=== PATIENT | male | born 1980 | race Caucasian/White ===

== ENCOUNTER 2018-04-17 17:51 | Inpatient (IN) | END 2018-04-21 14:05 | disposition home or self-care (01) | DRG 637 ==

== ENCOUNTER 2018-08-24 13:54 | Inpatient (IN) | payer MEDICARE, OTHER ==
[~2018-08-24] VITALS: Ht 167.6 cm; Wt 77.3 kg
[~2018-08-24 13:54] MED LIST: INSU100I33 SC; NOVO3I SC
[2018-08-24 14:20] VITALS: Ht 167.6 cm; Wt 77.3 kg
--- NOTE | 2018-08-24 15:03 | ERD ---
ER Documentation Chief Complaint Chief Complaint Vomiting since AM dark color emesis, blood glucose "HI" HPI 37-year-old man brought in by EMS for vomiting, weakness, dehydration, elevated blood sugar. Patient does have a history of diabetes mellitus with prior diabetic ketoacidosis. He states he has not used his insulin and diabetic therapy for over 1 day because his father was hospitalized recently and he was staying with him in the hospital I could not access his medication. Patient admits vomiting, generalized weakness began about half a day ago. He denies fevers or chills, no chest pain or shortness of breath, no loss of consciousness. Patient transported here by EMS without further complications ROS All systems reviewed and are negative except as per history of present illness. Medications Home Meds Reported Medications Aspirin* (Aspirin* EC) 81 Mg Tablet.dr, 81 MG PO DAILY, TAB 08/24/18 Atorvastatin Calcium* (Atorvastatin Calcium*) 20 Mg Tablet, 20 MG PO QHS, #30 TAB 08/24/18 Cholecalciferol (Vitamin D3) (Vitamin D-3) 2,000 Unit Tablet, 2000 UNIT PO DAILY 08/24/18 Insulin Detemir (Levemir) 100 Unit/1 Ml Vial, 23 UNITS SUBCUTANE* QHS 08/24/18 Insulin Aspart* (Novolog Insulin Pen*) 100 Unit/Ml Soln, 10-15 UNIT SC .SLIDING SCALE AC, EA 08/24/18 Discontinued Reported Medications Insulin Aspart* (Novolog Insulin Pen*) 100 Unit/Ml Soln, 0 SC .SLIDING SCALE AC, EA 04/17/18 Discontinued Scripts Insulin Glargine,Hum.rec.anlog (Basaglar Kwikpen U-100) 100 Unit/1 Ml Insuln.pen, 23 UNIT SC QHS for 30 Days, #1 EA Prov:DB LANDON MD 04/21/18 Allergies Allergies: Coded Allergies: No Known Drug Allergies (Verified Allergy, Unknown, 08/24/18) PMhx/Soc Diabetes mellitus History of Surgery: Yes (EYE SURGERY) Anesthesia Reaction: No Hx Neurological Disorder: No Hx Respiratory Disorders: No Hx Cardiac Disorders: No Hx Psychiatric Problems: No Hx Miscellaneous Medical Probl: Yes (DM, LEGALLY BLIND) Hx Alcohol Use: No Hx Substance Use: No Hx Tobacco Use: No Smoking Status: Never smoker FmHx Family History: No diabetes Physical Exam Vitals Vital Signs Date Temp Pulse Resp B/P (MAP) Pulse Ox O2 O2 Flow FiO2 Time Delivery Rate 08/24/18 97.5 124 26 118/49 100 14:20 (72) Physical Exam GENERAL: Well-developed, nauseous, afebrile HEENT: Dry mucous membranes, pink conjunctiva, no cervical spine tenderness or step-off deformities NEURO: Alert and oriented 3, cranial nerves II through XII intact bilaterally, pupils equal round reactive to light, no focal deficits or facial asymmetry, sensation intact distally Strength 5/5 in upper and lower extremities bilaterally CARDIAC: Tachycardic and regular, no murmurs rubs or gallops LUNGS: Clear bilaterally no wheezing crackles or stridor ABDOMEN: Soft nontender, no guarding, no rigidity, no rebound, no psoas sign no obturator sign. SKIN: Warm and dry to touch, no abrasions, contusions, or hematomas, no lacerations, no ecchymosis, no target lesions, and without ulcers EXTREMITIES: No clubbing cyanosis or edema, calves are bilaterally symmetrical, no Homans sign, no popliteal cord sign. Distal pulses equal and bilateral PSYCH: Normal affect without agitation or irritability Result Diagram: 08/24/18 1403 08/25/18 0851 Results 24 hrs Laboratory Tests Test 08/24/18 14:00 08/24/18 14:03 08/24/18 14:12 08/24/18 14:18 Bedside Glucose > 595 mg/dL White Blood 17.9 10^3/ul Count Red Blood Count 4.22 10^6/ul Hemoglobin 12.2 g/dl Hematocrit 38.6 % Mean 91.5 fl Corpuscular Volume Mean 28.9 pg Corpuscular Hemoglobin Mean 31.6 g/dl Corpuscular Hemoglobin Conc ent Red Cell 12.5 % Distribution Width Platelet Count 389 10^3/UL Mean Platelet 12.0 fl Volume Immature 0.800 % Granulocytes % Neutrophils % 88.4 % Lymphocytes % 4.2 % Monocytes % 6.3 % Eosinophils % 0.0 % Basophils % 0.3 % Nucleated Red 0.0 /100WBC Blood Cells % Immature 0.140 10^3/ul Granulocytes # Neutrophils # 15.8 10^3/ul Lymphocytes # 0.8 10^3/ul Monocytes # 1.1 10^3/ul Eosinophils # 0.0 10^3/ul Basophils # 0.1 10^3/ul Nucleated Red 0.0 10^3/ul Blood Cells # Sodium Level 131 mmol/L Potassium Level 7.5 mmol/L Chloride Level 87 mmol/L Carbon Dioxide 6 mmol/L Level Anion Gap 38 Blood Urea 33 mg/dl Nitrogen Creatinine 1.86 mg/dl Est Glomerular 41 mL/min Filtrat Rate mL/min Glucose Level 985 mg/dl Hemoglobin A1c 9.6 % Calcium Level 9.1 mg/dl Phosphorus 12.6 mg/dl Level Magnesium Level 2.5 mg/dl Total Bilirubin 0.1 mg/dl Direct 0.00 mg/dl Bilirubin Indirect 0.1 mg/dl Bilirubin Aspartate Amino 26 IU/L Transf (AST/SGO T) Alanine 16 IU/L Aminotransferas e (ALT/SGPT) Alkaline 149 IU/L Phosphatase Total Protein 7.5 g/dl Albumin 4.6 g/dl Lipase 269 U/L POC Venous 5.4 mmol/L Lactate Urine Color STRAW Urine Clarity CLEAR Urine pH 5.0 Urine Specific 1.016 [place] Urine Ketones 2+ mg/dL Urine Nitrite NEGATIVE mg/dL Urine Bilirubin NEGATIVE mg/dL Urine NEGATIVE mg/dL Urobilinogen Urine Leukocyte NEGATIVE Stefani/ul Esterase Urine 0 /HPF Microscopic RBC Urine 2 /HPF Microscopic WBC Urine Mucus FEW /HPF Urine 1+ mg/dL Hemoglobin Urine Glucose 3+ mg/dL Urine Total NEGATIVE mg/dl Protein Test 08/24/18 15:08 Blood Gas Blood venous Specimen Source Arterial Blood 08/24/2018 3:27: Date Drawn 25 PM Arterial Blood OTHER Gas Puncture Site Sony Test N/A Venous Blood pH 6.994 Venous Blood 25.0 mmHG pCO2 (Temp Corrected ) Venous Blood 76.2 mmHG pO2 (Temp Corrected ) Venous Blood 5.9 mmol/L HCO3 Venous Blood 89.0 mmHG Oxygen Saturation Venous Blood -24.1 mmol/L Base Excess Venous Blood 12.8 g/dl Total Hemoglobin Venous Blood 88.2 % Oxyhemoglobin Venous Blood 0.6 % Methemoglobin Blood Gas A-a 43.6 mmHg O2 Differential Carboxyhemoglob 0.3 % in Blood Gas 37.0 C Temperature Blood Gas ROOM AIR Modality FiO2 21.0 % Blood Gas Gia izaguirre Critical Value Read Back Blood Gas ab Notified Whom Blood Gas 08/24/2018 3:33: Notified Time 15 PM Current Medications Medications Dose Sig/Jeovanny Start Time Status Last (Trade) Ordered Route PRN Stop Time Admin Dose Reason Admin Sodium 770 ml @ ONCE ONCE 08/24/18 DC 08/24/18 Chloride 770 mls/hr IV 15:30 15:35 08/24/18 16:29 Ondansetron 4 mg ONCE STAT 08/24/18 DC 08/24/18 HCl (Zofran IV 15:28 15:35 Inj) 08/24/18 15:31 Ceftriaxone 50 ml @ ONCE ONCE 08/24/18 DC 08/24/18 Sodium 100 mls/hr IVPB 15:30 15:35 08/24/18 15:59 Sodium 1,000 ml @ Q1H ONCE 08/24/18 DC 08/24/18 Chloride 1,000 mls/hr IV 15:30 15:35 08/24/18 16:29 Insulin 10 unit ONCE ONCE 08/24/18 DC 08/24/18 Human SC 15:30 15:39 Lispro 08/24/18 15:31 (Humalog) Procedures/MDM IV line was established patient was placed on quality assurance monitor chassis rhythm strip revealed a sinus tachycardia at 140 bpm with upright P and T waves. Patient was afebrile I administered 3 L normal saline IV for dehydration and fluid resuscitation. I administered low-dose lispro insulin subcutaneous injection and began the patient on insulin drip. EKG performed, read by me revealed a sinus tachycardia at 126 bpm, normal axis, narrow QRS complex, no concerning ST elevations or depressions noted. CBC reveals a leukocytosis at 18, electrolytes were abnormal with hyponatremia and hyperkalemia 7.5, creatinine elevated, liver function tests unremarkable, ABG revealed a pH of 6.99 One AP view of the chest performed, read by me reveals no acute infiltrates, normal mediastinum, sharp costophrenic and cardiac borders, no air under the diaphragm. Otherwise unremarkable chest x-ray. Critical Care: Time: 52 minutes, this was time separate from other billable procedures. Treatments/Evaluations: Close monitoring and treatment of unstable vital signs, cardiorespiratory, and neurologic status, while maintaining tight balance of fluid, respiratory, and cardiac interventions. I administered calcium 2 g IV for hyperkalemia, I also administered sodium bicarbonate 50 mEq IV, patient also received Zofran 4 mg IV for nausea and vomiting. Also administered an initial empiric dose of ceftriaxone 1 g IV although continued antibiotics may not be needed and will be deferred to admitting team. Patient admitted to the ICU Departure Diagnosis: Primary Impression: DKA (diabetic ketoacidoses) Diabetes mellitus type: type 2 Diabetes mellitus complication detail: with coma Qualified Codes: E11.11 - Type 2 diabetes mellitus with ketoacidosis with coma Additional Impressions: Hyperglycemia Acute hyperkalemia Vomiting Vomiting type: unspecified Vomiting Intractability: intractable Nausea presence: with nausea Qualified Codes: R11.2 - Nausea with vomiting, unspecified Dehydration Acute kidney injury Condition: Serious DOMINGUEZ NAPOLES MD Aug 24, 2018 15:03
[2018-08-24] MEDS ORDERED: ONDANSETRON 4 MG INJ IV STA (15:28)
[2018-08-24] MEDS ORDERED: SOD CHLORIDE 0.9% 770 ML IV ONE (15:30)
[2018-08-24] MEDS ORDERED: SOD CHLORIDE 0.9% 1,000 ML IV ONE (15:30)
[2018-08-24] MEDS ORDERED: CEFTRIAXONE 1 GM/50 ML (PMX) 50 ML IVPB ONE (15:30)
[2018-08-24] MEDS ORDERED: INSULIN LISPRO 100 UNIT/ML VIAL SC ONE (15:30)
[2018-08-24] MEDS ORDERED: CA CHLORIDE 10% 10 ML SYRINGE ONE (15:52)
[2018-08-24] MEDS ORDERED: CA CHLORIDE 10% 10 ML SYRINGE IV ONE (16:00)
[2018-08-24] MEDS ORDERED: NA BICARBONATE 8.4% 50 ML SYG IV ONE ×2 (16:00→17:00)
[2018-08-24] MEDS ORDERED: CALCIUM GLUCONATE 10% 2 GM in DEXTROSE 5% 100 ML IVPB ONE (16:00)
[2018-08-24] MEDS ORDERED: SOD CHLORIDE 0.9% 1,000 ML IV SCH (16:13)
[2018-08-24] MEDS ORDERED: DEXTROSE 10 %/0.45 % NACL 1,000 ML IV SCH (16:13)
--- NOTE | 2018-08-24 16:17 | HP ---
Date/Time of Note Date/Time of Note DATE: 08/24/18 TIME: 16:17 Assessment/Plan VTE Prophylaxis SCD applied (from Nsg): Yes Pharmacological prophylaxis: LMWH Lines/Catheters IV Catheter Type (from Nrsg): Saline Lock Assessment/Plan Assessment/Plan 1. Diabetic ketoacidosis - DKA protocol started and will be admitted to ICU - Will monitor for closure of gap and transition to SC - due to medication noncompliance 2. Severe anion gap metabolic acidosis - given bicarb in ED and another amp given - no acute respiratory distress appreciated - monitor for improvement - secondary to #1 3. Diabetes Mellitus - A1c ordered - when DKA resolves will transition to PO diet and SC insulin 4. JERONIMO - most likely prerenal as patient appears very dehydrated 5. Hypercalcemia - most likely due to dehydration 6. Diet - NPO 7. DVT ppx - SCD - LMWH 8. GI ppx - PPI 9. Disposition - Admit to ICU for treatment of DKA Result Diagram: 08/24/18 1403 08/24/18 1403 Results 24hrs Laboratory Tests Test 08/24/18 14:00 08/24/18 14:03 08/24/18 14:12 08/24/18 14:18 Bedside Glucose > 595 *H White Blood Count 17.9 #H Red Blood Count 4.22 L Hemoglobin 12.2 L Hematocrit 38.6 #L Mean Corpuscular 91.5 Volume Mean Corpuscular 28.9 L Hemoglobin Mean Corpuscular 31.6 L Hemoglobin Concen t Red Cell 12.5 Distribution Width Platelet Count 389 # Mean Platelet 12.0 #H Volume Immature 0.800 H Granulocytes % Neutrophils % 88.4 H Lymphocytes % 4.2 L Monocytes % 6.3 Eosinophils % 0.0 Basophils % 0.3 Nucleated Red 0.0 Blood Cells % Immature 0.140 H Granulocytes # Neutrophils # 15.8 H Lymphocytes # 0.8 Monocytes # 1.1 H Eosinophils # 0.0 Basophils # 0.1 Nucleated Red 0.0 Blood Cells # Sodium Level 131 L Potassium Level 7.5 *H Chloride Level 87 L Carbon Dioxide 6 *L Level Anion Gap 38 H Blood Urea 33 H Nitrogen Creatinine 1.86 H Est Glomerular 41 L Filtrat Rate mL/min Glucose Level 985 *H Calcium Level 9.1 Phosphorus Level 12.6 H Magnesium Level 2.5 Total Bilirubin 0.1 L Direct Bilirubin 0.00 Indirect 0.1 Bilirubin Aspartate Amino 26 Transf (AST/SGOT) Alanine 16 Aminotransferase (ALT/SGPT) Alkaline 149 H Phosphatase Total Protein 7.5 Albumin 4.6 Lipase 269 POC Venous 5.4 *H Lactate Urine Color STRAW Urine Clarity CLEAR Urine pH 5.0 Urine Specific 1.016 [place] Urine Ketones 2+ H Urine Nitrite NEGATIVE Urine Bilirubin NEGATIVE Urine NEGATIVE Urobilinogen Urine Leukocyte NEGATIVE Esterase Urine Microscopic 0 RBC Urine Microscopic 2 WBC Urine Mucus FEW A Urine Hemoglobin 1+ H Urine Glucose 3+ H Urine Total NEGATIVE Protein Test 08/24/18 15:08 Blood Gas Blood venous Specimen Source Arterial Blood 08/24/2018 3:27:2 Date Drawn 5 PM Arterial Blood OTHER Gas Puncture Site Sony Test N/A Venous Blood pH 6.994 *L Venous Blood pCO2 25.0 L (Temp Corrected) Venous Blood pO2 76.2 H (Temp Corrected) Venous Blood HCO3 5.9 L Venous Blood 89.0 H Oxygen Saturation Venous Blood Base -24.1 L Excess Venous Blood 12.8 Total Hemoglobin Venous Blood 88.2 Oxyhemoglobin Venous Blood 0.6 Methemoglobin Blood Gas A-a O2 43.6 Differential Carboxyhemoglobin 0.3 Blood Gas 37.0 Temperature Blood Gas ROOM AIR Modality FiO2 21.0 Blood Gas Gia izaguirre Critical Value Read Back Blood Gas ab Notified Whom Blood Gas 08/24/2018 3:33:1 Notified Time 5 PM HPI/ROS Admit Date/Time Admit Date/Time 08/24/18 1600 Hx of Present Illness 37 yo M with PMH of blindness and diabetes mellitus presented to the ED with nausea and vomiting. Patient was not the most forthcoming with information and history was obtained from the ED physician. Per ED MD, patient admits to taking his father to the hospital yesterday. He still ate his meals but did not take any insulin since forgot his medications. He was without medications the entire day. He admits to nausea with vomiting of dark colored emesis since this am. Patient only mumbling to questions but appears in no acute distress. ROS All 12 systems reviewed and pertinent positives as per HPI. All others negative. ROS limited given patient lethargic. Constitutional: nausea Eyes: No discharge ENT: No congestion Respiratory: No shortness of breath Cardiovascular: No chest pain Gastrointestinal: nausea, vomiting Genitourinary: no complaints Skin: No rash PMH/Family/Social Past Medical History Medical History: diabetes Medications Current Medications Sodium Chloride 770 ml @ 770 mls/hr ONCE ONCE IV Last administered on 08/24/18at 15:35; Admin Dose 770 MLS/HR; Start 08/24/18 at 15:30; Stop 08/24/18 at 16:29 Sodium Chloride 1,000 ml @ 1,000 mls/hr Q1H ONCE IV Last administered on 08/24/18at 15:35; Admin Dose 1,000 MLS/HR; Start 08/24/18 at 15:30; Stop 08/24/18 at 16:29 Insulin Human Regular 100 unit/ Sodium Chloride 101 ml @ 7.8 mls/hr ER DKA PROTOCOL IV ; Start 08/24/18 at 16:30 Sodium Chloride 1,000 ml @ 0 mls/hr Q0M IV ; Start 08/24/18 at 16:13 Dextrose/Sodium Chloride 1,000 ml @ 0 mls/hr Q0M IV ; Start 08/24/18 at 16:13 Coded Allergies: No Known Drug Allergies (Verified Allergy, Unknown, 08/24/18) Past Surgical History Past Surgical Hx: other (unable to obtain) Family History Significant Family History: other (unable to obtain) Social History Alcohol Use: none Smoking Status: Never smoker Drug Use: none Exam/Review of Systems Vital Signs Vitals Vital Signs Date Temp Pulse Resp B/P (MAP) Pulse Ox O2 O2 Flow FiO2 Time Delivery Rate 08/24/18 97.5 124 26 118/49 100 14:20 (72) Exam Exam General: Patient is a pleasant male, fatigued, mild distress, dry mucous membranes HEENT: Atraumatic, normocephalic Neck: Supple with full range of motion. No rigidity or meningismus Chest: Nontender Lungs: Clear to auscultation bilaterally no crackles rales or wheezing Heart: Normal S1-S2, Regular rhythm, tachycardia no murmurs Abdomen: Soft , tender epigastric area, nondistended , bowel sounds are present. No guarding no rebound tenderness , No masses or organomegaly. No costovertebral temporal angle mass Extremities: Normal to inspection, no edema no cyanosis Additional Comments Home medications reviewed PROCEDURE: XR Chest. CLINICAL INDICATION: Diabetic ketoacidosis. TECHNIQUE: Chest, 1 view. COMPARISON: 09/08/2017. FINDINGS: The cardiomediastinal silhouette is normal in size. No focal consolidation is seen. No pleural effusion is seen. No definite pneumothorax is seen. No acute osseous abnormality. IMPRESSION: No radiographic evidence of an acute cardiopulmonary process. RPTAT: AAEE Alejandra Ramirez Physician Date Time Electronically viewed and signed by Alejadnra Ramirez, Physician on 08/24/2018 16:13 DB LANDON MD Aug 24, 2018 16:17
[2018-08-24] MEDS ORDERED: NOVO3I SC (16:26)
[2018-08-24] MEDS ORDERED: CHOL200056 PO (16:28)
[2018-08-24] MEDS ORDERED: LEVEM SUBCUTANE* (16:28)
[2018-08-24] MEDS ORDERED: ASPI-817 PO (16:29)
[2018-08-24] MEDS ORDERED: ATOR20TA38 PO (16:29)
[2018-08-24] MEDS ORDERED: METOCLOPRAMIDE 10 MG INJ IV PRN (16:30)
[2018-08-24] MEDS ORDERED: ONDANSETRON 4 MG INJ IV PRN (16:30)
[2018-08-24] MEDS ORDERED: ACETAMINOPHEN 650MG/20.3ML CUP PO PRN (16:30)
[2018-08-24] MEDS: INSULIN REGULAR, HUMAN 100 UNIT in SOD CHLORIDE 0.9% 100 ML IV SCH ×2 (16:59)
[2018-08-24] MEDS ORDERED: POTASSIUM CHLORIDE 30 MEQ in SOD CHLORIDE 0.9% 1,000 ML IV SCH (20:30)
[2018-08-24 23:15] VITALS: BP 116/66; PULSE 117; RESP 19
[2018-08-24] MEDS: D10/0.45% NACL + KCL 30 MEQ 1,000 ML IV SCH (23:18)
[2018-08-25] VITALS (22 sets, daily range): BP systolic 106–129; BP diastolic 53–79; PULSE 94–107; RESP 12–23
[2018-08-25] MEDS: INSULIN REGULAR, HUMAN 100 UNIT in SOD CHLORIDE 0.9% 100 ML IV SCH ×2 (03:58)
[2018-08-25] MEDS: D10/0.45% NACL + KCL 30 MEQ 1,000 ML IV SCH (05:00)
[2018-08-25] MEDS: PANTOPRAZOLE 40 MG INJ IV SCH ×2 (05:00→06:26)
[2018-08-25] MEDS: ENOXAPARIN 40 MG/0.4 ML SYG SC SCH (09:03)
[2018-08-25] MEDS ORDERED: D10/0.45% NACL + KCL 30 MEQ 1,000 ML IV ONE (09:16)
[2018-08-25] MEDS ORDERED: GLUCAGON 1 MG INJ IM PRN (10:00)
[2018-08-25] MEDS ORDERED: GLUCOSE GEL 15 GRAM TUBE PO PRN ×2 (10:00)
[2018-08-25] MEDS ORDERED: DEXTROSE 50% 50 ML SYRINGE IV PRN ×2 (10:00)
[2018-08-25] MEDS ORDERED: GLUCOSE GEL 15 GRAM TUBE BUCCAL PRN (10:00)
[2018-08-25] MEDS: INSULIN DETEMIR [LEVEMIR] (100 UNITS/ML) SYG SC SCH ×2 (11:28→21:06)
[2018-08-25] MEDS: INSULIN ASPART [NOVOLOG] 3 ML PEN SC SCH ×3 (11:30→20:36)
[2018-08-25] MEDS ORDERED: D10/0.45% NACL + KCL 30 MEQ 1,000 ML IV SCH (12:19)
[2018-08-25] MEDS ORDERED: SENNA/DOCUSATE NA (8.6MG/50MG) TAB PO PRN (13:30)
[2018-08-25] MEDS: POLYETHYLENE GLYCOL 17 GM PACKET PO SCH (13:30)
--- NOTE | 2018-08-25 14:33 | PN ---
Date/Time of Note Date/Time of Note DATE: 08/25/18 TIME: 14:29 Assessment/Plan VTE Prophylaxis Risk score (from Nsg)>0 risk: 3 SCD applied (from Nsg): Yes Pharmacological prophylaxis: LMWH Lines/Catheters IV Catheter Type (from Nrsg): Peripheral IV Urinary Cath still in place: No Assessment/Plan Assessment/Plan 1. Diabetic ketoacidosis- resolved - AG closed and transitioned to SC Lantus - due to medication noncompliance 2. Severe anion gap metabolic acidosis- resolved - no acute respiratory distress appreciated - secondary to #1 3. Diabetes Mellitus - A1c noted - continue Lantus and ISS with accuchecks 4. JERONIMO- resolved - most likely prerenal 5. Constipation - may be causing N/V 6. Hypercalcemia- resolved 7. Disposition - Once off insulin drip, can downgrade to telemetry >30 minutes of critical care time spent with patient Result Diagram: 08/24/18 1403 08/25/18 0851 Results 24hrs Laboratory Tests Test 08/24/18 15:08 08/24/18 16:26 08/24/18 16:35 08/24/18 16:57 Blood Gas Blood venous Specimen Source Arterial Blood 08/24/2018 3:27: Date Drawn 25 PM Arterial Blood OTHER Gas Puncture Site Sony Test N/A Venous Blood pH 6.994 *L Venous Blood 25.0 L pCO2 (Temp Corrected) Venous Blood pO2 76.2 H (Temp Corrected) Venous Blood 5.9 L HCO3 Venous Blood 89.0 H Oxygen Saturation Venous Blood -24.1 L Base Excess Venous Blood 12.8 Total Hemoglobin Venous Blood 88.2 Oxyhemoglobin Venous Blood 0.6 Methemoglobin Blood Gas A-a O2 43.6 Differential Carboxyhemoglobi 0.3 n Blood Gas 37.0 Temperature Blood Gas ROOM AIR Modality FiO2 21.0 Blood Gas Gia izaguirre Critical Value Read Back Blood Gas ab Notified Whom Blood Gas 08/24/2018 3:33: Notified Time 15 PM Bedside Glucose > 595 *H > 595 *H Sodium Level 132 L Potassium Level 7.2 *H Chloride Level 92 L Carbon Dioxide 7 *L Level Anion Gap 33 H Blood Urea 35 H Nitrogen Creatinine 1.84 H Est Glomerular 41 L Filtrat Rate mL/min Glucose Level 888 *H Calcium Level 11.3 #H Phosphorus Level 11.5 H Magnesium Level 2.5 Test 08/24/18 18:07 08/24/18 18:17 08/24/18 19:00 08/24/18 20:04 Bedside Glucose > 595 *H > 595 *H 476 *H POC Venous 2.5 *H Lactate Sodium Level 140 Potassium Level 4.9 # Chloride Level 99 Carbon Dioxide 11 L Level Anion Gap 30 H Blood Urea 34 H Nitrogen Creatinine 1.66 H Est Glomerular 47 L Filtrat Rate mL/min Glucose Level 564 #*H Calcium Level 10.8 H Phosphorus Level 5.9 #H Magnesium Level 2.7 H Test 08/24/18 20:13 08/24/18 20:58 08/24/18 21:57 08/24/18 23:10 Blood Gas Blood venous Specimen Source Arterial Blood 08/24/2018 7:18: Date Drawn 00 PM Arterial Blood VENOUS LINE Gas Puncture Site Sony Test N/A Venous Blood pH 7.205 L Venous Blood 32.1 L pCO2 (Temp Corrected) Venous Blood pO2 38.7 H (Temp Corrected) Venous Blood 12.4 L HCO3 Venous Blood 68.5 Oxygen Saturation Venous Blood -14.3 L Base Excess Venous Blood 13.1 Total Hemoglobin Venous Blood 68.0 Oxyhemoglobin Venous Blood 0.6 Methemoglobin Carboxyhemoglobi 0.1 n Blood Gas 37.0 Temperature Blood Gas ROOM AIR Modality FiO2 21.0 Blood Gas MG Notified Whom Blood Gas 08/24/2018 7:30: Notified Time 00 PM Bedside Glucose 396 H 379 H 201 Test 08/24/18 23:44 08/25/18 00:02 08/25/18 00:13 08/25/18 00:44 Bedside Glucose 187 252 H Sodium Level 144 Potassium Level 4.5 Chloride Level 108 Carbon Dioxide 20 L Level Anion Gap 16 #H Blood Urea 28 H Nitrogen Creatinine 1.36 H Est Glomerular 59 L Filtrat Rate mL/min Glucose Level 221 #H Calcium Level 10.2 Phosphorus Level 3.0 # Magnesium Level 2.4 Blood Gas Blood venous Specimen Source Arterial Blood 08/25/2018 12:00 Date Drawn :24 AM Arterial Blood VENOUS LINE Gas Puncture Site Sony Test N/A Venous Blood pH 7.310 L Venous Blood 43.3 pCO2 (Temp Corrected) Venous Blood pO2 29.4 (Temp Corrected) Venous Blood 21.3 L HCO3 Venous Blood 55.8 Oxygen Saturation Venous Blood -4.8 Base Excess Venous Blood 12.6 Total Hemoglobin Venous Blood 55.3 Oxyhemoglobin Venous Blood 0.4 Methemoglobin Carboxyhemoglobi 0.5 n Blood Gas 37.0 Temperature Blood Gas ROOM AIR Modality FiO2 21.0 Blood Gas MA Notified Whom Blood Gas 08/25/2018 12:08 Notified Time :04 AM Test 08/25/18 01:42 08/25/18 02:57 08/25/18 03:54 08/25/18 04:52 Bedside Glucose 215 210 188 180 Test 08/25/18 04:58 08/25/18 05:53 08/25/18 06:46 08/25/18 08:02 Sodium Level 145 H Potassium Level 4.6 Chloride Level 112 H Carbon Dioxide 25 Level Anion Gap 8 # Blood Urea 25 H Nitrogen Creatinine 1.08 Est Glomerular > 60 Filtrat Rate mL/min Glucose Level 175 Calcium Level 9.8 Phosphorus Level 2.5 Magnesium Level 2.3 Bedside Glucose 191 159 185 Test 08/25/18 08:06 08/25/18 08:51 08/25/18 08:55 08/25/18 09:58 Blood Gas Blood venous Specimen Source Arterial Blood 08/25/2018 8:55: Date Drawn 00 AM Arterial Blood 6.939 *L pH (Temp corrected) Arterial Blood 81.7 *H pCO2 (Temp correct) Arterial Blood 43.0 *L pO2 (Temp corrected) Arterial Blood 17.1 L HCO3 Arterial Blood -16.1 L Base Excess Arterial Blood 60.0 L Oxygen Saturatio n Sony Test N/A Arterial Blood VENOUS LINE Gas Puncture Site Arterial 0.4 Blood Carboxyhem oglobin Arterial Blood 0.8 Methemoglobin Oxyhemoglobin 59.3 L Percent Blood Gas 37.0 Temperature Blood Gas ROOM AIR Modality FiO2 21.0 Blood Gas LETY RED Critical Value Read Back Blood Gas TM Notified Whom Blood Gas 08/25/2018 9:03: Notified Time 00 AM Sodium Level 142 Potassium Level 4.4 Chloride Level 112 H Carbon Dioxide 25 Level Anion Gap 5 Blood Urea 19 Nitrogen Creatinine 0.95 Est Glomerular > 60 Filtrat Rate mL/min Glucose Level 170 Calcium Level 9.4 Magnesium Level 2.2 Bedside Glucose 165 175 Test 08/25/18 10:34 08/25/18 10:56 08/25/18 11:55 08/25/18 13:02 Blood Gas Blood venous Specimen Source Arterial Blood 08/25/2018 10:56 Date Drawn :53 AM Arterial Blood VENOUS LINE Gas Puncture Site Sony Test N/A Venous Blood pH 7.013 *L Venous Blood 76.7 H pCO2 (Temp Corrected) Venous Blood pO2 58.6 H (Temp Corrected) Venous Blood 19.1 L HCO3 Venous Blood 79.8 H Oxygen Saturation Venous Blood -12.8 L Base Excess Venous Blood 11.9 Total Hemoglobin Venous Blood 79.2 Oxyhemoglobin Venous Blood 0.4 Methemoglobin Carboxyhemoglobi 0.3 n Blood Gas 37.0 Temperature Blood Gas ROOM AIR Modality FiO2 21.0 Blood Gas LETY RED Critical Value Read Back Blood Gas TM Notified Whom Blood Gas 08/25/2018 11:06 Notified Time :46 AM Bedside Glucose 153 169 149 Test 08/25/18 14:03 Bedside Glucose 190 Subjective 24 Hr Interval Summary Free Text/Dictation Patient still with nausea and vomiting. States feels as if his abdominal is full. Has been constipated for about 2 weeks, he admits. Exam/Review of Systems Exam Vitals Vital Signs Date Temp Pulse Resp B/P (MAP) Pulse Ox O2 O2 Flow FiO2 Time Delivery Rate 08/25/18 104 12:00 08/25/18 98.7 20 127/72 99 Room Air 12:00 (90) Intake and Output 08/24/18 08/24/18 08/25/18 1515:00 23:00 07:00 IntakeIntake Total 1820 ml 1804.6 ml OutputOutput Total 550 ml 950 ml BalanceBalance 1270 ml 854.6 ml Exam General: mild distress secondary to nausea Neck: Supple Chest: Nontender Lungs: Clear to auscultation bilaterally no crackles rales or wheezing Heart: Normal S1-S2, Regular rhythm, tachycardia no murmurs Abdomen: Soft , mildly tender, nondistended , bowel sounds are present. No guarding no rebound tenderness Extremities: Normal to inspection, no edema no cyanosis Results Results 24hrs Laboratory Tests Test 08/24/18 15:08 08/24/18 16:26 08/24/18 16:35 08/24/18 16:57 Blood Gas Blood venous Specimen Source Arterial Blood 08/24/2018 3:27: Date Drawn 25 PM Arterial Blood OTHER Gas Puncture Site Sony Test N/A Venous Blood pH 6.994 *L Venous Blood 25.0 L pCO2 (Temp Corrected) Venous Blood pO2 76.2 H (Temp Corrected) Venous Blood 5.9 L HCO3 Venous Blood 89.0 H Oxygen Saturation Venous Blood -24.1 L Base Excess Venous Blood 12.8 Total Hemoglobin Venous Blood 88.2 Oxyhemoglobin Venous Blood 0.6 Methemoglobin Blood Gas A-a O2 43.6 Differential Carboxyhemoglobi 0.3 n Blood Gas 37.0 Temperature Blood Gas ROOM AIR Modality FiO2 21.0 Blood Gas Gia leroyr Critical Value Read Back Blood Gas ab Notified Whom Blood Gas 08/24/2018 3:33: Notified Time 15 PM Bedside Glucose > 595 *H > 595 *H Sodium Level 132 L Potassium Level 7.2 *H Chloride Level 92 L Carbon Dioxide 7 *L Level Anion Gap 33 H Blood Urea 35 H Nitrogen Creatinine 1.84 H Est Glomerular 41 L Filtrat Rate mL/min Glucose Level 888 *H Calcium Level 11.3 #H Phosphorus Level 11.5 H Magnesium Level 2.5 Test 08/24/18 18:07 08/24/18 18:17 08/24/18 19:00 08/24/18 20:04 Bedside Glucose > 595 *H > 595 *H 476 *H POC Venous 2.5 *H Lactate Sodium Level 140 Potassium Level 4.9 # Chloride Level 99 Carbon Dioxide 11 L Level Anion Gap 30 H Blood Urea 34 H Nitrogen Creatinine 1.66 H Est Glomerular 47 L Filtrat Rate mL/min Glucose Level 564 #*H Calcium Level 10.8 H Phosphorus Level 5.9 #H Magnesium Level 2.7 H Test 08/24/18 20:13 08/24/18 20:58 08/24/18 21:57 08/24/18 23:10 Blood Gas Blood venous Specimen Source Arterial Blood 08/24/2018 7:18: Date Drawn 00 PM Arterial Blood VENOUS LINE Gas Puncture Site Sony Test N/A Venous Blood pH 7.205 L Venous Blood 32.1 L pCO2 (Temp Corrected) Venous Blood pO2 38.7 H (Temp Corrected) Venous Blood 12.4 L HCO3 Venous Blood 68.5 Oxygen Saturation Venous Blood -14.3 L Base Excess Venous Blood 13.1 Total Hemoglobin Venous Blood 68.0 Oxyhemoglobin Venous Blood 0.6 Methemoglobin Carboxyhemoglobi 0.1 n Blood Gas 37.0 Temperature Blood Gas ROOM AIR Modality FiO2 21.0 Blood Gas MG Notified Whom Blood Gas 08/24/2018 7:30: Notified Time 00 PM Bedside Glucose 396 H 379 H 201 Test 08/24/18 23:44 08/25/18 00:02 08/25/18 00:13 08/25/18 00:44 Bedside Glucose 187 252 H Sodium Level 144 Potassium Level 4.5 Chloride Level 108 Carbon Dioxide 20 L Level Anion Gap 16 #H Blood Urea 28 H Nitrogen Creatinine 1.36 H Est Glomerular 59 L Filtrat Rate mL/min Glucose Level 221 #H Calcium Level 10.2 Phosphorus Level 3.0 # Magnesium Level 2.4 Blood Gas Blood venous Specimen Source Arterial Blood 08/25/2018 12:00 Date Drawn :24 AM Arterial Blood VENOUS LINE Gas Puncture Site Sony Test N/A Venous Blood pH 7.310 L Venous Blood 43.3 pCO2 (Temp Corrected) Venous Blood pO2 29.4 (Temp Corrected) Venous Blood 21.3 L HCO3 Venous Blood 55.8 Oxygen Saturation Venous Blood -4.8 Base Excess Venous Blood 12.6 Total Hemoglobin Venous Blood 55.3 Oxyhemoglobin Venous Blood 0.4 Methemoglobin Carboxyhemoglobi 0.5 n Blood Gas 37.0 Temperature Blood Gas ROOM AIR Modality FiO2 21.0 Blood Gas MA Notified Whom Blood Gas 08/25/2018 12:08 Notified Time :04 AM Test 08/25/18 01:42 08/25/18 02:57 08/25/18 03:54 08/25/18 04:52 Bedside Glucose 215 210 188 180 Test 08/25/18 04:58 08/25/18 05:53 08/25/18 06:46 08/25/18 08:02 Sodium Level 145 H Potassium Level 4.6 Chloride Level 112 H Carbon Dioxide 25 Level Anion Gap 8 # Blood Urea 25 H Nitrogen Creatinine 1.08 Est Glomerular > 60 Filtrat Rate mL/min Glucose Level 175 Calcium Level 9.8 Phosphorus Level 2.5 Magnesium Level 2.3 Bedside Glucose 191 159 185 Test 08/25/18 08:06 08/25/18 08:51 08/25/18 08:55 08/25/18 09:58 Blood Gas Blood venous Specimen Source Arterial Blood 08/25/2018 8:55: Date Drawn 00 AM Arterial Blood 6.939 *L pH (Temp corrected) Arterial Blood 81.7 *H pCO2 (Temp correct) Arterial Blood 43.0 *L pO2 (Temp corrected) Arterial Blood 17.1 L HCO3 Arterial Blood -16.1 L Base Excess Arterial Blood 60.0 L Oxygen Saturatio n Sony Test N/A Arterial Blood VENOUS LINE Gas Puncture Site Arterial 0.4 Blood Carboxyhem oglobin Arterial Blood 0.8 Methemoglobin Oxyhemoglobin 59.3 L Percent Blood Gas 37.0 Temperature Blood Gas ROOM AIR Modality FiO2 21.0 Blood Gas LETY RED Critical Value Read Back Blood Gas TM Notified Whom Blood Gas 08/25/2018 9:03: Notified Time 00 AM Sodium Level 142 Potassium Level 4.4 Chloride Level 112 H Carbon Dioxide 25 Level Anion Gap 5 Blood Urea 19 Nitrogen Creatinine 0.95 Est Glomerular > 60 Filtrat Rate mL/min Glucose Level 170 Calcium Level 9.4 Magnesium Level 2.2 Bedside Glucose 165 175 Test 08/25/18 10:34 08/25/18 10:56 08/25/18 11:55 08/25/18 13:02 Blood Gas Blood venous Specimen Source Arterial Blood 08/25/2018 10:56 Date Drawn :53 AM Arterial Blood VENOUS LINE Gas Puncture Site Sony Test N/A Venous Blood pH 7.013 *L Venous Blood 76.7 H pCO2 (Temp Corrected) Venous Blood pO2 58.6 H (Temp Corrected) Venous Blood 19.1 L HCO3 Venous Blood 79.8 H Oxygen Saturation Venous Blood -12.8 L Base Excess Venous Blood 11.9 Total Hemoglobin Venous Blood 79.2 Oxyhemoglobin Venous Blood 0.4 Methemoglobin Carboxyhemoglobi 0.3 n Blood Gas 37.0 Temperature Blood Gas ROOM AIR Modality FiO2 21.0 Blood Gas LETY RED Critical Value Read Back Blood Gas TM Notified Whom Blood Gas 08/25/2018 11:06 Notified Time :46 AM Bedside Glucose 153 169 149 Test 08/25/18 14:03 Bedside Glucose 190 Medications Medication Current Medications Ondansetron HCl (Zofran Inj) 4 mg Q6H PRN IV NAUSEA AND/OR VOMITING; Start 08/24/18 at 16:30 Metoclopramide HCl (Reglan) 10 mg Q6H PRN IV NAUSEA AND/OR VOMITING Last administered on 08/25/18at 13:45; Admin Dose 10 MG; Start 08/24/18 at 16:30 Acetaminophen (Tylenol Liquid) 650 mg Q6H PRN PO PAIN LEVEL 1-3 OR FEVER Last administered on 08/25/18at 11:35; Admin Dose 650 MG; Start 08/24/18 at 16:30 Pantoprazole (Protonix Iv) 40 mg DAILY@06 IV Last administered on 08/25/18at 06:26; Admin Dose 40 MG; Start 08/25/18 at 06:00 Enoxaparin Sodium (Lovenox) 40 mg DAILY SC Last administered on 08/25/18at 09:03; Admin Dose 40 MG; Start 08/25/18 at 09:00 Insulin Detemir (Levemir) 23 units QHS SC Last administered on 08/25/18at 11:28; Admin Dose 23 UNITS; Start 08/25/18 at 10:30 Insulin Aspart (Novolog Insulin Pen) NOVOLOG *MILD* ALGORITHM WITH MEALS BEDTIME SC ; Start 08/25/18 at 11:30 Miscellaneous Information 1 ea NOTE XX ; Start 08/25/18 at 10:00 Glucose (Glutose) 15 gm Q15M PRN PO DECREASED GLUCOSE; Start 08/25/18 at 10:00 Glucose (Glutose) 22.5 gm Q15M PRN PO DECREASED GLUCOSE; Start 08/25/18 at 10:00 Dextrose (D50w Syringe) 25 ml Q15M PRN IV DECREASED GLUCOSE; Start 08/25/18 at 10:00 Dextrose (D50w Syringe) 50 ml Q15M PRN IV DECREASED GLUCOSE; Start 08/25/18 at 10:00 Glucagon (Glucagen) 1 mg Q15M PRN IM DECREASED GLUCOSE; Start 08/25/18 at 10:00 Glucose (Glutose) 15 gm Q15M PRN BUCCAL DECREASED GLUCOSE; Start 08/25/18 at 10:00 Diagnostic Test (Pha) (Accu-Chek) 1 ea 02 XX ; Start 08/26/18 at 02:00 Potassium Chloride/Dextrose/ Sod Cl 1,000 ml @ 0 mls/hr Q0M IV Last administered on 08/25/18at 14:04; Admin Dose 250 MLS/HR; Start 08/25/18 at 12:19 Polyethylene Glycol (Miralax) 17 gm DAILY PO ; Start 08/25/18 at 13:30 Senna/Docusate Sodium (Senokot-S) 1 tab BID PRN PO constipation; Start 08/25/18 at 13:30 DB LANDON MD Aug 25, 2018 14:33
[2018-08-26] VITALS (10 sets, daily range): BP systolic 115–134; BP diastolic 70–83; PULSE 88–100; RESP 18–20
[2018-08-26] MEDS: ACCUCHECK AT 2AM (Patients on SS coverage) XX SCH (02:00)
[2018-08-26] MEDS: PANTOPRAZOLE 40 MG INJ IV SCH (06:23)
[2018-08-26] MEDS: POLYETHYLENE GLYCOL 17 GM PACKET PO SCH (08:06)
[2018-08-26] MEDS: ENOXAPARIN 40 MG/0.4 ML SYG SC SCH (08:14)
[2018-08-26] MEDS: INSULIN ASPART [NOVOLOG] 3 ML PEN SC SCH ×4 (08:14→21:00)
--- NOTE | 2018-08-26 09:43 | PN ---
Date/Time of Note Date/Time of Note DATE: 08/26/18 TIME: 09:43 Assessment/Plan VTE Prophylaxis Risk score (from Ns)>0 risk: 1 SCD applied (from Nsg): Yes Pharmacological prophylaxis: LMWH Lines/Catheters IV Catheter Type (from Nrsg): Peripheral IV Urinary Cath still in place: No Assessment/Plan Assessment/Plan 1. Abdominal discomfort secondary to constipation - bowel regime on board and if no improvement, Lactulose. Patient refusing suppository or enema - last BM 2 weeks ago 2. Diabetic ketoacidosis- resolved - due to medication noncompliance 3. Severe anion gap metabolic acidosis- resolved - no acute respiratory distress appreciated 4. Diabetes Mellitus - A1c noted - continue Lantus and ISS with accuchecks 5. JERONIMO- resolved - most likely prerenal 6. Hypercalcemia- resolved 7. Disposition - Once constipation resolves and able to tolerate PO diet, will d/c home Result Diagram: 08/26/18 0503 08/26/18 0503 Results 24hrs Laboratory Tests Test 08/25/18 09:58 08/25/18 10:34 08/25/18 10:56 08/25/18 11:55 Bedside Glucose 175 153 169 Blood Gas Blood venous Specimen Source Arterial Blood 08/25/2018 10:56: Date Drawn 53 AM Arterial Blood VENOUS LINE Gas Puncture Site Sony Test N/A Venous Blood pH 7.013 *L Venous Blood pCO2 76.7 H (Temp Corrected) Venous Blood pO2 58.6 H (Temp Corrected) Venous Blood HCO3 19.1 L Venous Blood 79.8 H Oxygen Saturation Venous Blood Base -12.8 L Excess Venous Blood 11.9 Total Hemoglobin Venous Blood 79.2 Oxyhemoglobin Venous Blood 0.4 Methemoglobin Carboxyhemoglobin 0.3 Blood Gas 37.0 Temperature Blood Gas ROOM AIR Modality FiO2 21.0 Blood Gas LETY RED Critical Value Read Back Blood Gas TM Notified Whom Blood Gas 08/25/2018 11:06: Notified Time 46 AM Test 08/25/18 13:02 08/25/18 14:03 08/25/18 17:59 08/25/18 20:35 Bedside Glucose 149 190 283 H 179 Test 08/26/18 05:03 08/26/18 07:55 White Blood Count 10.6 # Red Blood Count 3.76 L Hemoglobin 10.8 L Hematocrit 31.5 L Mean Corpuscular 83.8 Volume Mean Corpuscular 28.7 L Hemoglobin Mean Corpuscular 34.3 Hemoglobin Concen t Red Cell 13.4 Distribution Width Platelet Count 275 # Mean Platelet 10.6 H Volume Immature 0.300 Granulocytes % Neutrophils % 80.7 H Lymphocytes % 12.9 L Monocytes % 5.8 Eosinophils % 0.1 Basophils % 0.2 Nucleated Red 0.0 Blood Cells % Immature 0.030 Granulocytes # Neutrophils # 8.5 H Lymphocytes # 1.4 Monocytes # 0.6 Eosinophils # 0.0 Basophils # 0.0 Nucleated Red 0.0 Blood Cells # Sodium Level 138 Potassium Level 4.0 Chloride Level 103 Carbon Dioxide 26 Level Anion Gap 9 Blood Urea 12 Nitrogen Creatinine 0.74 Glucose Level 282 #H Calcium Level 9.1 Phosphorus Level 2.8 Magnesium Level 1.9 Albumin 3.7 Bedside Glucose 220 Subjective 24 Hr Interval Summary Free Text/Dictation Patient still with abdominal discomfort and diminished appetite. Last BM was 2 weeks prior. He states he usually only has a BM about weekly. Exam/Review of Systems Exam Vitals Vital Signs Date Temp Pulse Resp B/P (MAP) Pulse Ox O2 O2 Flow FiO2 Time Delivery Rate 08/26/18 97.9 91 20 130/76 99 07:30 (94) 08/25/18 Room Air 19:24 Intake and Output 08/25/18 08/25/18 08/26/18 1515:00 23:00 07:00 IntakeIntake Total 1914.6 ml 120 ml 400 ml OutputOutput Total 750 ml BalanceBalance 1164.6 ml 120 ml 400 ml Exam General: no acute distress. answering questions appropriately Neck: Supple Chest: Nontender Lungs: Clear to auscultation bilaterally no crackles rales or wheezing Heart: Normal S1-S2, Regular rate and rhythm, no murmurs Abdomen: Slightly firm, mildly tender LLQ, mildly distended , bowel sounds are present. No guarding no rebound tenderness Extremities: Normal to inspection, no edema no cyanosis Results Results 24hrs Laboratory Tests Test 08/25/18 09:58 08/25/18 10:34 08/25/18 10:56 08/25/18 11:55 Bedside Glucose 175 153 169 Blood Gas Blood venous Specimen Source Arterial Blood 08/25/2018 10:56: Date Drawn 53 AM Arterial Blood VENOUS LINE Gas Puncture Site Sony Test N/A Venous Blood pH 7.013 *L Venous Blood pCO2 76.7 H (Temp Corrected) Venous Blood pO2 58.6 H (Temp Corrected) Venous Blood HCO3 19.1 L Venous Blood 79.8 H Oxygen Saturation Venous Blood Base -12.8 L Excess Venous Blood 11.9 Total Hemoglobin Venous Blood 79.2 Oxyhemoglobin Venous Blood 0.4 Methemoglobin Carboxyhemoglobin 0.3 Blood Gas 37.0 Temperature Blood Gas ROOM AIR Modality FiO2 21.0 Blood Gas LETY RED Critical Value Read Back Blood Gas TM Notified Whom Blood Gas 08/25/2018 11:06: Notified Time 46 AM Test 08/25/18 13:02 08/25/18 14:03 08/25/18 17:59 08/25/18 20:35 Bedside Glucose 149 190 283 H 179 Test 08/26/18 05:03 08/26/18 07:55 White Blood Count 10.6 # Red Blood Count 3.76 L Hemoglobin 10.8 L Hematocrit 31.5 L Mean Corpuscular 83.8 Volume Mean Corpuscular 28.7 L Hemoglobin Mean Corpuscular 34.3 Hemoglobin Concen t Red Cell 13.4 Distribution Width Platelet Count 275 # Mean Platelet 10.6 H Volume Immature 0.300 Granulocytes % Neutrophils % 80.7 H Lymphocytes % 12.9 L Monocytes % 5.8 Eosinophils % 0.1 Basophils % 0.2 Nucleated Red 0.0 Blood Cells % Immature 0.030 Granulocytes # Neutrophils # 8.5 H Lymphocytes # 1.4 Monocytes # 0.6 Eosinophils # 0.0 Basophils # 0.0 Nucleated Red 0.0 Blood Cells # Sodium Level 138 Potassium Level 4.0 Chloride Level 103 Carbon Dioxide 26 Level Anion Gap 9 Blood Urea 12 Nitrogen Creatinine 0.74 Glucose Level 282 #H Calcium Level 9.1 Phosphorus Level 2.8 Magnesium Level 1.9 Albumin 3.7 Bedside Glucose 220 Medications Medication Current Medications Ondansetron HCl (Zofran Inj) 4 mg Q6H PRN IV NAUSEA AND/OR VOMITING Last administered on 08/25/18at 17:19; Admin Dose 4 MG; Start 08/24/18 at 16:30 Metoclopramide HCl (Reglan) 10 mg Q6H PRN IV NAUSEA AND/OR VOMITING Last administered on 08/25/18at 13:45; Admin Dose 10 MG; Start 08/24/18 at 16:30 Acetaminophen (Tylenol Liquid) 650 mg Q6H PRN PO PAIN LEVEL 1-3 OR FEVER Last administered on 08/25/18at 11:35; Admin Dose 650 MG; Start 08/24/18 at 16:30 Pantoprazole (Protonix Iv) 40 mg DAILY@06 IV Last administered on 08/26/18at 06:23; Admin Dose 40 MG; Start 08/25/18 at 06:00 Enoxaparin Sodium (Lovenox) 40 mg DAILY SC Last administered on 08/26/18at 08:14; Admin Dose 40 MG; Start 08/25/18 at 09:00 Insulin Detemir (Levemir) 23 units QHS SC Last administered on 08/25/18at 21:06; Admin Dose 23 UNITS; Start 08/25/18 at 10:30 Insulin Aspart (Novolog Insulin Pen) NOVOLOG *MILD* ALGORITHM WITH MEALS BEDTIME SC Last administered on 08/26/18at 08:14; Admin Dose 2 UNIT; Start 08/25/18 at 11:30 Miscellaneous Information 1 ea NOTE XX ; Start 08/25/18 at 10:00 Glucose (Glutose) 15 gm Q15M PRN PO DECREASED GLUCOSE; Start 08/25/18 at 10:00 Glucose (Glutose) 22.5 gm Q15M PRN PO DECREASED GLUCOSE; Start 08/25/18 at 10:00 Dextrose (D50w Syringe) 25 ml Q15M PRN IV DECREASED GLUCOSE; Start 08/25/18 at 10:00 Dextrose (D50w Syringe) 50 ml Q15M PRN IV DECREASED GLUCOSE; Start 08/25/18 at 10:00 Glucagon (Glucagen) 1 mg Q15M PRN IM DECREASED GLUCOSE; Start 08/25/18 at 10:00 Glucose (Glutose) 15 gm Q15M PRN BUCCAL DECREASED GLUCOSE; Start 08/25/18 at 10:00 Diagnostic Test (Pha) (Accu-Chek) 1 ea 02 XX ; Start 08/26/18 at 02:00 Polyethylene Glycol (Miralax) 17 gm DAILY PO Last administered on 08/26/18at 08:06; Admin Dose 17 GM; Start 08/25/18 at 13:30 Senna/Docusate Sodium (Senokot-S) 1 tab BID PRN PO constipation; Start 08/25/18 at 13:30 DB LANDON MD Aug 26, 2018 09:43
[2018-08-26] MEDS ORDERED: LACTULOSE 30ML CUP PO PRN (11:00)
[2018-08-26] MEDS ORDERED: INSULIN DETEMIR [LEVEMIR] (100 UNITS/ML) SYG SC SCH (21:00)
[2018-08-27] VITALS: BP 118/77; PULSE 82; PULSE 91; RESP 16
[2018-08-27] MEDS: ACCUCHECK AT 2AM (Patients on SS coverage) XX SCH (02:55)
[2018-08-27 04:00] VITALS: BP 116/75; PULSE 78; PULSE 89; RESP 18
[2018-08-27] MEDS: PANTOPRAZOLE 40 MG INJ IV SCH (05:59)
[2018-08-27 07:42] VITALS: BP 123/78; PULSE 83; RESP 18
[2018-08-27] MEDS: POLYETHYLENE GLYCOL 17 GM PACKET PO SCH (08:26)
[2018-08-27] MEDS: ENOXAPARIN 40 MG/0.4 ML SYG SC SCH (08:31)
[2018-08-27] MEDS: INSULIN ASPART [NOVOLOG] 3 ML PEN SC SCH ×2 (08:31→12:13)
--- NOTE | 2018-08-27 08:41 | PN ---
Date/Time of Note Date/Time of Note DATE: 08/27/18 TIME: 08:41 Assessment/Plan VTE Prophylaxis Risk score (from Nsg)>0 risk: 1 SCD applied (from Nsg): Yes Pharmacological prophylaxis: LMWH Lines/Catheters IV Catheter Type (from Nrsg): Saline Lock Urinary Cath still in place: No Assessment/Plan Assessment/Plan 1. Abdominal discomfort secondary to constipation- resolved - BM yesterday and feeling significantly better 2. Diabetic ketoacidosis- resolved - due to medication noncompliance 3. Severe anion gap metabolic acidosis- resolved - no acute respiratory distress appreciated 4. Diabetes Mellitus - A1c noted - continue Lantus and ISS with accuchecks - discussed adjusting Lantus dose for better am control. Patient also on Novolog 10 units with meals 5. JERONIMO- resolved - most likely prerenal 6. Hypercalcemia- resolved 7. Disposition -Medically stable for discharge home Result Diagram: 08/27/18 0507 08/27/18 0507 Results 24hrs Laboratory Tests Test 08/26/18 12:13 08/26/18 17:37 08/26/18 20:29 08/26/18 20:32 Bedside Glucose 338 H 288 H 303 H 306 H Test 08/27/18 02:37 08/27/18 05:07 08/27/18 08:15 Bedside Glucose 146 284 H White Blood Count 5.3 # Red Blood Count 4.03 L Hemoglobin 11.4 L Hematocrit 33.6 L Mean Corpuscular 83.4 Volume Mean Corpuscular 28.3 L Hemoglobin Mean Corpuscular 33.9 Hemoglobin Concent Red Cell 12.9 Distribution Width Platelet Count 263 Mean Platelet Volume 10.8 H Immature 0.200 Granulocytes % Neutrophils % 67.4 Lymphocytes % 23.0 Monocytes % 8.0 Eosinophils % 1.0 Basophils % 0.4 Nucleated Red Blood 0.0 Cells % Immature 0.010 Granulocytes # Neutrophils # 3.6 Lymphocytes # 1.2 Monocytes # 0.4 Eosinophils # 0.1 Basophils # 0.0 Nucleated Red Blood 0.0 Cells # Sodium Level 141 Potassium Level 4.2 Chloride Level 102 Carbon Dioxide Level 30 Anion Gap 9 Blood Urea Nitrogen 15 Creatinine 0.67 Glucose Level 246 H Calcium Level 9.3 Phosphorus Level 4.0 Magnesium Level 2.2 Albumin 3.8 Subjective 24 Hr Interval Summary Free Text/Dictation Patient states he's feeling significantly better after BM yesterday. Discussed modifications to his Lantus dose and states he eats big breakfasts and adjusts his Novolog accordingly. Exam/Review of Systems Exam Vitals Vital Signs Date Temp Pulse Resp B/P (MAP) Pulse Ox O2 O2 Flow FiO2 Time Delivery Rate 08/27/18 98.3 83 18 123/78 95 07:42 (93) 08/25/18 Room Air 19:24 Intake and Output 08/26/18 08/26/18 08/27/18 1515:00 23:00 07:00 IntakeIntake Total 800 ml 300 ml BalanceBalance 800 ml 300 ml Exam General: no acute distress. answering questions appropriately Neck: Supple Chest: Nontender Lungs: Clear to auscultation bilaterally no crackles rales or wheezing Heart: Normal S1-S2, Regular rate and rhythm, no murmurs Abdomen: soft, nontender, nondistended, bowel sounds are present. No guarding no rebound tenderness Extremities: Normal to inspection, no edema no cyanosis Results Results 24hrs Laboratory Tests Test 08/26/18 12:13 08/26/18 17:37 08/26/18 20:29 08/26/18 20:32 Bedside Glucose 338 H 288 H 303 H 306 H Test 08/27/18 02:37 08/27/18 05:07 08/27/18 08:15 Bedside Glucose 146 284 H White Blood Count 5.3 # Red Blood Count 4.03 L Hemoglobin 11.4 L Hematocrit 33.6 L Mean Corpuscular 83.4 Volume Mean Corpuscular 28.3 L Hemoglobin Mean Corpuscular 33.9 Hemoglobin Concent Red Cell 12.9 Distribution Width Platelet Count 263 Mean Platelet Volume 10.8 H Immature 0.200 Granulocytes % Neutrophils % 67.4 Lymphocytes % 23.0 Monocytes % 8.0 Eosinophils % 1.0 Basophils % 0.4 Nucleated Red Blood 0.0 Cells % Immature 0.010 Granulocytes # Neutrophils # 3.6 Lymphocytes # 1.2 Monocytes # 0.4 Eosinophils # 0.1 Basophils # 0.0 Nucleated Red Blood 0.0 Cells # Sodium Level 141 Potassium Level 4.2 Chloride Level 102 Carbon Dioxide Level 30 Anion Gap 9 Blood Urea Nitrogen 15 Creatinine 0.67 Glucose Level 246 H Calcium Level 9.3 Phosphorus Level 4.0 Magnesium Level 2.2 Albumin 3.8 Medications Medication Current Medications Ondansetron HCl (Zofran Inj) 4 mg Q6H PRN IV NAUSEA AND/OR VOMITING Last administered on 08/25/18at 17:19; Admin Dose 4 MG; Start 08/24/18 at 16:30 Metoclopramide HCl (Reglan) 10 mg Q6H PRN IV NAUSEA AND/OR VOMITING Last administered on 08/25/18at 13:45; Admin Dose 10 MG; Start 08/24/18 at 16:30 Acetaminophen (Tylenol Liquid) 650 mg Q6H PRN PO PAIN LEVEL 1-3 OR FEVER Last administered on 08/25/18at 11:35; Admin Dose 650 MG; Start 08/24/18 at 16:30 Pantoprazole (Protonix Iv) 40 mg DAILY@06 IV Last administered on 08/27/18at 05:59; Admin Dose 40 MG; Start 08/25/18 at 06:00 Enoxaparin Sodium (Lovenox) 40 mg DAILY SC Last administered on 08/27/18at 08:3 1; Admin Dose 40 MG; Start 08/25/18 at 09:00 Insulin Aspart (Novolog Insulin Pen) NOVOLOG *MILD* ALGORITHM WITH MEALS BEDTIME SC Last administered on 08/27/18at 08:31; Admin Dose 4 UNIT; Start 08/25/18 at 11:30 Miscellaneous Information 1 ea NOTE XX ; Start 08/25/18 at 10:00 Glucose (Glutose) 15 gm Q15M PRN PO DECREASED GLUCOSE; Start 08/25/18 at 10:00 Glucose (Glutose) 22.5 gm Q15M PRN PO DECREASED GLUCOSE; Start 08/25/18 at 10:00 Dextrose (D50w Syringe) 25 ml Q15M PRN IV DECREASED GLUCOSE; Start 08/25/18 at 10:00 Dextrose (D50w Syringe) 50 ml Q15M PRN IV DECREASED GLUCOSE; Start 08/25/18 at 10:00 Glucagon (Glucagen) 1 mg Q15M PRN IM DECREASED GLUCOSE; Start 08/25/18 at 10:00 Glucose (Glutose) 15 gm Q15M PRN BUCCAL DECREASED GLUCOSE; Start 08/25/18 at 10:00 Diagnostic Test (Pha) (Accu-Chek) 1 ea 02 XX Last administered on 08/27/18at 02:55; Admin Dose 1 EA; Start 08/26/18 at 02:00 Polyethylene Glycol (Miralax) 17 gm DAILY PO Last administered on 08/27/18at 08:26; Admin Dose 17 GM; Start 08/25/18 at 13:30 Senna/Docusate Sodium (Senokot-S) 1 tab BID PRN PO constipation; Start 08/25/18 at 13:30 Lactulose (Enulose) 20 gm ONCE PRN PO constipation Last administered on 08/26/18at 12:32; Admin Dose 20 GM; Start 08/26/18 at 11:00; Stop 08/27/18 at 10:59 Insulin Detemir (Levemir) 26 units QHS SC Last administered on 08/26/18at 21:00; Admin Dose 26 UNITS; Start 08/26/18 at 21:00 DB LANDON MD Aug 27, 2018 08:41
[2018-08-27 09:01] VITALS: PULSE 83
[2018-08-27] MEDS ORDERED: LEVEM SUBCUTANE* (10:09)
--- NOTE | 2018-08-27 10:12 | PDOCDIS ---
Discharge Instructions DIAGNOSIS Discharge Diagnosis 1. Abdominal discomfort secondary to constipation- resolved 2. Diabetic ketoacidosis- resolved 3. Severe anion gap metabolic acidosis- resolved 4. Diabetes Mellitus 5. JERONIMO- resolved 6. Hypercalcemia- resolved CONDITION [id number] Patient Condition: [id number] Stable HOME CARE INSTRUCTIONS: [id number] Diet Instructions: [id number] Low Fat /Cholesterol [id number] Special Diet: [id number] low carb, low sugar diet FOLLOW UP/APPOINTMENTS Follow-up Plan 1. Follow up with your primary care physician in 1 week 2. Increase your Lantus dose at night to 25 units for better control 3. Continue with Novolog 10-15 units prior to meals as per your usual regime 4. Avoid processed foods high in carbs and sugars 5. If symptoms worsen, please go to your nearest emergency department DB LANDON MD Aug 27, 2018 10:12
[2018-08-27 11:11] VITALS: BP 138/88; PULSE 91; RESP 18
[2018-08-27] MEDS ORDERED: INSULIN ASPART [NOVOLOG] 3 ML PEN SC ONE (12:30)
[2018-08-27 12:50] VITALS: PULSE 92
--- NOTE | 2018-08-27 15:22 | DS ---
Date/Time of Note Date/Time of Note DATE: 08/27/18 TIME: 15:19 Discharge Summary Admission/Discharge Info Admit Date/Time Aug 24, 2018 at 15:49 Discharge Date/Time Aug 27, 2018 at 14:10 Discharge Diagnosis 1. Abdominal discomfort secondary to constipation- resolved 2. Diabetic ketoacidosis- resolved 3. Severe anion gap metabolic acidosis- resolved 4. Diabetes Mellitus 5. JERONIMO- resolved 6. Hypercalcemia- resolved Patient Condition: Stable Procedures PROCEDURE: XR Chest. CLINICAL INDICATION: Difficulty breathing TECHNIQUE: Single frontal view of the chest was obtained COMPARISON: 08/24/2018 FINDINGS: The heart and mediastinum are within normal limits. The lungs are clear. There is no pleural effusion or pneumothorax. The bones and soft tissue show no acute change. IMPRESSION: No definite abnormalities are identified. RPTAT:AAJJ Physician Miguel Date Time Electronically viewed and signed by Greg Wahl Physician on 08/25/2018 09:18 Hx of Present Illness 37 yo M with PMH of blindness and diabetes mellitus presented to the ED with nausea and vomiting. Patient was not the most forthcoming with information and history was obtained from the ED physician. Per ED MD, patient admits to taking his father to the hospital yesterday. He still ate his meals but did not take any insulin since forgot his medications. He was without medications the entire day. He admits to nausea with vomiting of dark colored emesis since this am. Patient only mumbling to questions but appears in no acute distress. Hospital Course Patient was admitted to ICU for DKA protocol which improved after started on IVF and insulin drip. Patients gap closed and was transitioned to SC insulin. P atients Lantus dose was adjusted for better sugar control. Patient had a poor appetite since was experiencing 2 weeks of constipation. He was given a bowel prep which helped him pass a BM. Presenting symptoms improved and on day of discharge vitals and physical exam were stable. Patient was discharged home in good condition. Home Meds Active Scripts Insulin Detemir (Levemir) 100 Unit/1 Ml Vial, 25 UNITS SUBCUTANE* QHS for 30 Days, #1 VIAL 5 Refills Prov:DB LANDON MD 08/27/18 Reported Medications Aspirin* (Aspirin* EC) 81 Mg Tablet.dr, 81 MG PO DAILY, TAB 08/24/18 Atorvastatin Calcium* (Atorvastatin Calcium*) 20 Mg Tablet, 20 MG PO QHS, #30 TAB 08/24/18 Cholecalciferol (Vitamin D3) (Vitamin D-3) 2,000 Unit Tablet, 2000 UNIT PO DAILY 08/24/18 Insulin Aspart* (Novolog Insulin Pen*) 100 Unit/Ml Soln, 10-15 UNIT SC .SLIDING SCALE AI EA 08/24/18 Discontinued Reported Medications Insulin Aspart* (Novolog Insulin Pen*) 100 Unit/Ml Soln, 0 SC .SLIDING SCALE PEDRITO CLUOD 04/17/18 Discontinued Scripts Insulin Glargine,Hum.rec.anlog (Basaglar Kwikpen U-100) 100 Unit/1 Ml Insuln.pen, 23 UNIT SC QHS for 30 Days, #1 EA Prov:DB LANDON MD 04/21/18 Follow-up Plan 1. Follow up with your primary care physician in 1 week 2. Increase your Lantus dose at night to 25 units for better control 3. Continue with Novolog 10-15 units prior to meals as per your usual regime 4. Avoid processed foods high in carbs and sugars 5. If symptoms worsen, please go to your nearest emergency department Primary Care Provider Care Physician No Primary Time spent on discharge: > 30 minutes Pending Labs Laboratory Tests Test 08/26/18 17:37 08/26/18 20:29 08/26/18 20:32 08/27/18 02:37 Bedside 288 303 306 146 Glucose mg/dL (70-220) mg/dL (70-220) mg/dL (70-220) mg/dL (70-220) Test 08/27/18 05:07 08/27/18 08:15 08/27/18 12:08 White Blood 5.3 Count 10^3/ul (4.8-10 .8) Red Blood 4.03 Count 10^6/ul (4.70-6 .10) Hemoglobin 11.4 g/dl (14.0-18.0 ) Hematocrit 33.6 % (42.0-52.0) Mean 83.4 Corpuscular fl (82.0-101.0) Volume Mean 28.3 Corpuscular pg (29.0-33.0) Hemoglobin Mean 33.9 Corpuscular g/dl (32.0-37.0 Hemoglobin Conc ) ent Red Cell 12.9 Distribution % (11.5-14.5) Width Platelet Count 263 10^3/UL (140-41 5) Mean Platelet 10.8 Volume fl (7.4-10.4) Immature 0.200 Granulocytes % % (0.001-0.429) Neutrophils % 67.4 % (39.0-77.0) Lymphocytes % 23.0 % (15.0-51.0) Monocytes % 8.0 % (0.0-11.0) Eosinophils % 1.0 % (0.0-7.0) Basophils % 0.4 % (0.0-2.0) Nucleated Red 0.0 Blood Cells % /100WBC (0.0-0. 0) Immature 0.010 Granulocytes # 10^3/ul (0.0-0. 031) Neutrophils # 3.6 10^3/ul (1.6-7. 5) Lymphocytes # 1.2 10^3/ul (0.8-2. 9) Monocytes # 0.4 10^3/ul (0.3-0. 9) Eosinophils # 0.1 10^3/ul (0.0-0. 5) Basophils # 0.0 10^3/ul (0.0-0. 1) Nucleated Red 0.0 Blood Cells # 10^3/ul (0.0-0. 0) Sodium Level 141 mmol/L (135-144 ) Potassium 4.2 Level mmol/L (3.5-5.1 ) Chloride Level 102 mmol/L (97-110) Carbon Dioxide 30 Level mmol/L (21-31) Anion Gap 9 (5-13) Blood Urea 15 mg/dl (7-20) Nitrogen Creatinine 0.67 mg/dl (0.61-1.2 4) Glucose Level 246 mg/dl (70-220) Calcium Level 9.3 mg/dl (8.4-10.2 ) Phosphorus 4.0 Level mg/dl (2.5-4.9) Magnesium 2.2 Level mg/dl (1.7-2.5) Albumin 3.8 g/dl (3.3-4.9) Bedside 284 368 Glucose mg/dL (70-220) mg/dL (70-220) DB LANDON MD Aug 27, 2018 15:22
[2018-08-27] MEDS ORDERED: INSULIN DETEMIR [LEVEMIR] (100 UNITS/ML) SYG SC SCH (21:00)
== END 2018-08-27 14:10 | disposition home or self-care (01) | DRG 638 ==
LOC: E/R 13:54 → ICU 15:49 → 6WM 08-25 17:20
PROVIDERS: ADMIT Internal Medicine; ATTEND Internal Medicine
DX: E11.10 Type 2 diabetes mellitus with ketoacidosis without coma (principal); N17.9 Acute kidney failure, unspecified; Z79.4 Long term (current) use of insulin; H54.8 Legal blindness, as defined in USA; E86.0 Dehydration; E87.5 Hyperkalemia; R11.2 Nausea with vomiting, unspecified
CPT/HCPCS: 36415; 36600; 71045; 80048; 80069; 80076; 81001; 82803; 82962; 83036; 83605; 83690; 83735; 84100; 85025; 87040; 87081; 87086; 93005; 96372; 96374; 96375; C9113; J0610; J0696; J1650; J1815; J2405; J2765; J3480; J7030